=== PATIENT | female | born 1970 | race Caucasian/White ===

== ENCOUNTER 2022-04-11 14:39 | Emergency (ER) | payer OTHER, SELFPAY ==
[2022-04-11 15:05] VITALS: BP 148/87; PULSE 71; RESP 18; TEMP 36.6; O2SAT 98; BMI 31.5
--- NOTE | 2022-04-11 15:13 | ED_ITS ---
HPI - Nausea/Vomiting/Diarrhea General: Chief complaint: Nausea/Vomiting/Diarrhea Stated complaint: Throwing up, headache, gallbladder issues Time Seen by Provider: 04/11/22 15:11 Source: patient Mode of arrival: ambulatory Limitations: no limitations History of Present Illness: 52-year-old female who presents emergency room with complaint of right upper quadrant abdominal pain and epigastric pain. She has had this for several months certain foods particularly greasy foods seem to trigger it with nausea vomiting some loose stools she does not really describe any acholic stools. The last for couple hours is becoming more more intense more frequent and seemed more more foods are triggering it as well. MD elicited complaint: nausea Pertinent past history: anorexia Onset (ago): minute(s) Course Vital Signs: Vital signs: Vital Signs Temperature 97.9 F 04/11/22 15:05 Pulse Rate 71 04/11/22 15:05 Respiratory Rate 18 04/11/22 15:05 Blood Pressure 148/87 04/11/22 15:05 Pulse Oximetry 98 04/11/22 15:05 MDM - Nausea/Vomiting/Diarrhea Medical Decision Making Ultrasound shows cholelithiasis without evidence of obstruction of the common bile duct. Liver enzymes are nonelevated white count is mildly elevated. T bili is normal very slight bump in her ALT but alk phos is normal. We will go ahead and discharge her home have her follow-up with surgery as an outpatient bland diet hydrocodone and promethazine as needed for pain. Medical Records I reviewed the patient's medical records. Lab Data I reviewed the patient's lab results. : 04/11/22 15:45 04/11/22 15:45 Laboratory Results WBC 11.0 10^3/uL (4.0-10.0) H 04/11/22 15:45 RBC 5.18 10^6/uL (4.1-5.3) 04/11/22 15:45 Hgb 15.1 g/dL (11.5-15.3) 04/11/22 15:45 Hct 44.6 % (37.0-47.0) 04/11/22 15:45 MCV 86.1 fl (81-99) 04/11/22 15:45 MCH 29.2 pg (28.0-34.0) 04/11/22 15:45 MCHC 33.9 g/dL (30.0-36.0) 04/11/22 15:45 RDW 12.6 % (12.1-15.1) 04/11/22 15:45 Plt Count 284 10^3/cmm (130-400) 04/11/22 15:45 MPV 10.5 fL (7.4-10.4) H 04/11/22 15:45 Neut % (Auto) 86.4 % 04/11/22 15:45 Lymph % (Auto) 9.9 % 04/11/22 15:45 [place] % (Auto) 2.6 % 04/11/22 15:45 Eos % (Auto) 0.3 % 04/11/22 15:45 Baso % (Auto) 0.4 % 04/11/22 15:45 Neut # (Auto) 9.52 10^3/uL (1.8-7.7) H 04/11/22 15:45 Lymph # (Auto) 1.1 10^3/uL (0.8-4.8) 04/11/22 15:45 [place] # (Auto) 0.3 10^3/uL (0.2-0.9) 04/11/22 15:45 Eos # (Auto) 0.0 10^3/uL (0.0-0.8) 04/11/22 15:45 Baso # (Auto) 0.0 10^3/uL (0.0-0.1) 04/11/22 15:45 Nucleated RBC % (auto) 0 % 04/11/22 15:45 Nucleated RBCs # 0.0 /100WBC 04/11/22 15:45 Sodium 137 mmol/L (136-145) 04/11/22 15:45 Potassium 4.0 mmol/L (3.5-5.1) 04/11/22 15:45 Chloride 104 mmol/L (98-107) 04/11/22 15:45 Carbon Dioxide 20 mmol/L (22-29) L 04/11/22 15:45 Anion Gap 17.0 (5-19) 04/11/22 15:45 BUN 12 mg/dL (6-20) 04/11/22 15:45 Creatinine 0.6 mg/dL (0.5-0.9) 04/11/22 15:45 GFR Calculation 105.4 mL/min (90-130) 04/11/22 15:45 Glucose 131 mg/dL (65-115) H 04/11/22 15:45 Calculated Osmolality 286 mOsm/kg (285-295) 04/11/22 15:45 Calcium 8.6 mg/dL (8.5-10.5) 04/11/22 15:45 Total Bilirubin 0.3 mg/dL (0.15-1.2) 04/11/22 15:45 AST 20 U/L (0-32) 04/11/22 15:45 ALT 38 U/L (0-33) H 04/11/22 15:45 Alkaline Phosphatase 71 IU/L (35-105) 04/11/22 15:45 Total Protein 7.0 g/dL (6.6-8.7) 04/11/22 15:45 Albumin 4.6 g/dL (3.5-5.2) 04/11/22 15:45 Globulin 2.4 g/dL (1.3-4.6) 04/11/22 15:45 Lipase 16 U/L (13-60) 04/11/22 15:45 Urine Color Yellow (Yellow) 04/11/22 15:40 Urine Appearance Clear (CLEAR) 04/11/22 15:40 Urine pH 6 (5-7) 04/11/22 15:40 Ur Specific [place] 1.020 (1.005-1.030) 04/11/22 15:40 Urine Protein Trace (Negative) 04/11/22 15:40 Urine Glucose (UA) Trace (Normal) H 04/11/22 15:40 Urine Ketones 1+ (Negative) H 04/11/22 15:40 Urine Blood Trace (Negative) H 04/11/22 15:40 Urine Nitrate Negative (Negative) 04/11/22 15:40 Urine Bilirubin Neg (Negative) 04/11/22 15:40 Urine Urobilinogen Norm mg/dL (Negative) 04/11/22 15:40 Ur Leukocyte Esterase Negative (Negative) 04/11/22 15:40 Urine RBC 0-4 /hpf (0-2) H 04/11/22 15:40 Urine WBC 0-4 /hpf (0-5) H 04/11/22 15:40 Ur Squamous Epith Cells 0-4 /hpf (0-5) H 04/11/22 15:40 Amorphous Sediment Not Reportable 04/11/22 15:40 Urine Bacteria 1+ /hpf (NONE) H 04/11/22 15:40 Urine Mucus 1+ /hpf 04/11/22 15:40 Discharge Plan Discharge Patient Disposition: Home Clinical Impression: Cholelithiasis, Biliary colic Condition: Stable Prescriptions: New hydrocodone-acetaminophen 5-325 mg tablet 1 tab PO Q6H PRN (Reason: pain) Qty: 25 0RF promethazine 25 mg tablet 25 mg PO Q6H PRN (Reason: nausea and vomiting) Qty: 20 0RF No Action estradiol 1 mg tablet 1 mg PO QAM 0RF Discharge Orders: Discharge ED (Routine); Ordered 04/11/22 Ordered By: Roque Hatfield Referrals: David Manning MD [Family Provider] - Activity Restrictions/Additional Instructions: [employer] sigma project manager will make arrangements for you to see Dr. Sofia in the outpatient setting Coding Level of Care Code ED Operations Inspector for Bibiana Ortega
--- NOTE | 2022-04-11 15:39 | USR_ITS ---
PROCEDURE INFORMATION: Exam: US Abdomen, Limited; Right Upper Quadrant Exam date and time: 04/11/2022 4:38 PM Age: 52 years old Clinical indication: Abdominal pain; Acute; Additional info: Abd pain/ruq TECHNIQUE: Imaging protocol: US abdomen. Real time ultrasound with image documentation. Limited exam focused on the right upper quadrant. COMPARISON: US Retroperitoneum [id number] 08/02/2015 11:29 AM FINDINGS: Liver: Liver is somewhat enlarged with slightly echogenic parenchyma compatible with steatosis. No obvious cirrhosis or large mass. No regional ascites. An ill-defined hypoechoic area in the liver is noted adjacent to gallbladder fossa measuring 14 x 20 x 25 mm, compatible with area of focal fatty sparing. Gallbladder: There is at least 1 shadowing gallbladder calculus measuring about 1.6 by 1.8 cm. No sonographic signs of acute cholecystitis. No abnormal bile duct dilatation. Proximal CBD measures 5-6 mm. Biliary ducts: See Gallbladder finding. Pancreas: Partially visualized pancreas is unremarkable. Right kidney: Normal. No mass. No hydronephrosis. Aorta: No aortic aneurysm. Inferior vena cava: Unremarkable IVC. Portal venous: Main portal vein is patent with normal flow direction. Other findings: Details are limited due to body habitus. US/US gall bladder [id number] IMPRESSION: 1. Hepatomegaly with steatosis. No obvious cirrhosis. 2. Cholelithiasis.
[2022-04-11 15:52] LABS: Basophils % 0.4 %; Eosinophils % 0.3 %; Hematocrit 44.6 % (37.0-47.0); Hemoglobin 15.1 g/dL (11.5-15.3); Lymphocytes # 1.1 10^3/uL (0.8-4.8); Lymphocytes % 9.9 %; Mean Corpuscular HGB Conc 33.9 g/dL (30.0-36.0); Mean Corpuscular Hemoglobin 29.2 pg (28.0-34.0); Mean Corpuscular Volume 86.1 fl (81-99); Mean Platelet Volume 10.5 fL (7.4-10.4); Monocytes # 0.3 10^3/uL (0.2-0.9); Monocytes % 2.6 %; Neutrophils # 9.52 10^3/uL (1.8-7.7); Neutrophils % 86.4 %; Nucleated Red Blood Cells % 0 %; Platelet Count 284 10^3/cmm (130-400); Red Blood Count 5.18 10^6/uL (4.1-5.3); Red Cell Distribution Width 12.6 % (12.1-15.1)
[2022-04-11] MEDS: ondansetron 2 mg/ML SDV 2 mL 4 MG IVP (15:52)
[2022-04-11] MEDS: lactated ringers 1,000 ML 999 ML IV ×2 (15:53→18:09)
[2022-04-11 16:16] LABS: Alanine Aminotransferase 38 U/L (0-33); Albumin Level 4.6 g/dL (3.5-5.2); Alkaline Phosphatase 71 IU/L (35-105); Aspartate Amino Transferase 20 U/L (0-32); Blood Urea Nitrogen 12 mg/dL (6-20); Calcium 8.6 mg/dL (8.5-10.5); Carbon Dioxide 20 mmol/L (22-29); Chloride 104 mmol/L (98-107); Globulin 2.4 g/dL (1.3-4.6); Glomerular Filtration Rate 105.4 mL/min (90-130); Glucose 131 mg/dL (65-115); Lipase 16 U/L (13-60); Osmolality Calculated 286 mOsm/kg (285-295); Sodium 137 mmol/L (136-145); Total Bilirubin 0.3 mg/dL (0.15-1.2)
[2022-04-11 16:21] LABS: Urine Appearance Clear (CLEAR); Urine Color Yellow (Yellow); pH Urine 6 (5-7)
[2022-04-11 16:22] LABS: Add Urine Microscopic? YES; Bilirubin Urine Neg (Negative); Blood Urine Trace (Negative); Glucose Urine UA Trace (Normal); Ketones Urine 1+ (Negative); Leukocyte Esterase Urine Negative (Negative); Nitrate Urine Negative (Negative); Protein Urine Trace (Negative); Urobilinogen Urine Norm (Negative)
[2022-04-11 16:40] LABS: RBC Urine 0-4 /hpf (0-2); Squamous Epithelial Cell Urine 0-4 /hpf (0-5); WBC Urine 0-4 /hpf (0-5)
[2022-04-11 16:41] LABS: Add Urine Culture? No; Bacteria Urine 1+ /hpf; Mucus Urine 1+ /hpf
[2022-04-11 17:43] VITALS: BP 139/72; PULSE 88; RESP 16; O2SAT 97
--- NOTE | 2022-04-11 19:16 | PC.NURSE ---
1899 Assumed pt care from Dania GONZALEZ
--- NOTE | 2022-04-12 10:04 | DCPLANNER ---
Addendum entered by Ilene Melvin 04/21/22 08:10: Patient had a follow up appointment scheduled for 04.17.[address] Sofia - patient did attend appointment. Original Note: ar manager had message to schedule a follow up appointment for patient with Dr. Sofia. ar manager called the office of Dr. Sofia, spoke with Carlita, gave clinic patients information. Clinic will review patients information and will call patient with appointment information.
== END 2022-04-11 19:30 | disposition home or self-care (01) ==
PROVIDERS: Physician Assistant; Emergency Provider Family Medicine
DX: K80.20 Calculus of gallbladder without cholecystitis without obstruction (principal); Z79.890 Hormone replacement therapy
CPT/HCPCS: 76705; 80053; 81001; 83690; 85025; 96361; 96374; 99284; J2405

== ENCOUNTER 2024-08-14 09:24 | Outpatient (CLI) | payer BC, SELFPAY ==
--- NOTE | 2024-08-14 09:26 | US_ITS ---
WS: [id number] RIGHT UPPER QUADRANT ULTRASOUND HISTORY: HEPATOMEGALY COMPARISON: 04/11/2022 Liver: 20.0 cm in length. Entire liver is not well visualized due to attenuation. Limited visualizati on of the entire liver. No mass identified. Changes of hepatic steatosis and heterogeneity. Portal Vein: Normal hepatopetal flow with monophasic waveform. Gallbladder: Prior cholecystectomy. CBD: 0.3 cm Pancreas: Poorly visualized. Right kidney: 11.1 cm in length. Normal size and echogenicity. No hydronephrosis or mass. Aorta and IVC: Unremarkable abdominal aorta and IVC. No ascites. US/US abdomen limited [id number] IMPRESSION: 1. Technically limited evaluation of the RIGHT upper quadrant. 2. Moderate hepatic steatosis and hepatomegaly. Similar to the prior study. 3. Status post cholecystectomy.
== END 2024-08-14 09:25 | disposition home or self-care (01) ==
LOC: RAD 09:24
PROVIDERS: Visit Provider Family Medicine
DX: R16.0 Hepatomegaly, not elsewhere classified (principal); Z00.00 Encounter for general adult medical examination without abnormal findings; K76.0 Fatty (change of) liver, not elsewhere classified; Z90.49 Acquired absence of other specified parts of digestive tract
CPT/HCPCS: 76705

== ENCOUNTER → 2025-10-19 09:22 | Outpatient (BNVA) | payer BC, SELFPAY | PROVIDERS: Visit Provider Nurse Practitioner Women's Health | DX: E89.41 Symptomatic postprocedural ovarian failure (principal); R53.83 Other fatigue | CPT/HCPCS: 82306; 82670 ==